=== PATIENT | female | born 1980 | race Caucasian/White ===

== ENCOUNTER 2018-10-05 08:57 | Outpatient (CLI) | payer OTHER ==
--- NOTE | 2018-10-05 10:40 | ULT ---
ULTRASOUND ABDOMEN LIMITED: (RIGHT UPPER QUADRANT) HISTORY: 37-year-old female with right upper quadrant abdominal pain. FINDINGS: The gallbladder has normal wall thickness and has no evidence of gallstones or sludge. The hepatic e chogenicity is normal. The right kidney has normal echogenicity and has no hydronephrosis. The panc reas is visualized, although ultrasound is relatively insensitive for pancreatic pathology compared t o CT and MRI. There is no biliary dilation. The common duct caliber is 4 mm. IMPRESSION: Normal. jn POS: [facility]
== END 2018-10-05 08:58 | disposition home or self-care (01) ==
LOC: BICULT 08:57
PROVIDERS: ATTEND Student in an Organized Health Care Education/Training Program
DX: R07.81 Pleurodynia (principal)
CPT/HCPCS: 76705

== ENCOUNTER 2018-10-26 08:35 | Outpatient (CLI) | payer OTHER ==
--- NOTE | 2018-10-26 11:03 | CT ---
CT ABDOMEN AND PELVIS WITH AND WITHOUT IV CONTRAST: DATE: 10/26/2018. HISTORY: Pelvic and peroneal pain as well as right lower quadrant abdominal pain. The patient states recently abdominal pain is generalized. COMPARISON: None available. FINDINGS: The lung bases are clear. No pulmonary nodule or mass is visualized. The liver, spleen, pancreas, bilateral adrenal glands, kidneys, abdominal aorta, mildly distended uri nary bladder, uterus, and adnexal structures demonstrate a normal CT appearance for the patient's age . There is a tiny amount of fluid within the right lower hemipelvis. This is probably physiologic in o rigin. The appendix is not visualized, but there are no secondary signs to suggest appendicitis. No lymphadenopathy is seen within the abdomen or pelvis. A few punctate sclerotic densities are seen within the pelvic bones likely related to small bone bridgett nds. IMPRESSION: A tiny amount of fluid in the right lower hemipelvis which is below the level of the right ovary. So me of the images question the possibility of thin-walled margins of this structure, although this may be related to adjacent vessels. A tiny fluid collection is a possibility versus a tiny amount free fluid. This is overall nonspecific and no additional fluid, fluid collection, or lymphadenopathy is seen in the abdomen or pelvis. Follow up evaluation may be helpful. No other acute findings are seen in the abdomen or pelvis. POS: [facility]
[2018-10-26] MEDS ORDERED: ISOVUE-370 76%-LOCM 1 ML ONE (14:47)
== END 2018-10-26 08:36 | disposition home or self-care (01) ==
LOC: BICCT 08:35
DX: R10.2 Pelvic and perineal pain (principal)
CPT/HCPCS: 74178

== ENCOUNTER 2024-09-16 07:34 | Outpatient (CLI) | payer OTHER | END 2024-09-16 07:35 | disposition home or self-care (01) | LOC: BICCT 07:34 | PROVIDERS: ATTEND Internal Medicine | DX: R31.29 Other microscopic hematuria (principal) | CPT/HCPCS: 74178 ==

== ENCOUNTER 2024-09-20 08:20 | Outpatient (CLI) | payer OTHER | END 2024-09-20 08:21 | disposition home or self-care (01) | LOC: ULT 08:20 | PROVIDERS: ATTEND Internal Medicine | DX: R10.9 Unspecified abdominal pain (principal); R10.2 Pelvic and perineal pain; E04.1 Nontoxic single thyroid nodule; R93.89 Abnormal findings on diagnostic imaging of other specified body structures; Z90.721 Acquired absence of ovaries, unilateral | CPT/HCPCS: 76536; 76700; 76856 ==